=== PATIENT | female | born 1995 | race Caucasian/White ===

== ENCOUNTER 2018-06-24 21:27 | Emergency (ER) | payer BC ==
[~2018-06-24] VITALS: Ht 162.6 cm; Wt 90.6 kg
[~2018-06-24 21:27] MED LIST: AMBIEN10 MG PO; Motrin PO; Natalcare Rx,Pramile PO; Percocet 5/325,Endoc PO; Slow Fe PO
[2018-06-24 21:50] LABS: HEMATOCRIT 42.5 % (36.0-46.0); HEMOGLOBIN 15.2 G/DL (11.9-15.5); MCH 32.8 PG (29.0-34.0); MCHC 35.8 G/DL (30.0-36.0); MCV 91.8 FL (83-99); PLATELET COUNT 256 K/uL (156-360); RBC DIS.WIDTH-CV 11.9 % (11.8-14.6); RBC DIS.WIDTH-SD 39.8 % (39-53); RED BLOOD COUNT 4.63 M/uL (3.80-5.20); WHITE BLOOD COUNT 9.7 K/uL (4.1-10.2)
[2018-06-24 22:01] LABS: CHLORIDE 105 mEq/L (99-109); SODIUM 140 mEq/L (136-147)
[2018-06-24 22:03] LABS: GLUCOSE 87 mg/dL (70-99)
[2018-06-24 22:07] LABS: CREATININE 0.9 mg/dL (0.6-1.3); GFR ESTIMATE (CALCULATED) > 59 mL/min/
[2018-06-24 22:08] LABS: UREA NITROGEN (BUN) 10 mg/dL (9-23)
[2018-06-24 22:11] LABS: TROP-I INTERPRETATION NEGATIVE; TROPONIN-I < 0.01 ng/mL (0.0-0.30)
[2018-06-25 00:01] LABS: D-DIMER ELISA < 150.00 ng/mLDDU (<230)
[2018-06-25 01:34] VITALS: BP 120/72
== END 2018-06-25 01:35 | disposition home or self-care (01) ==
LOC: EME 21:27
DX: R07.9 Chest pain, unspecified (principal); F17.200 Nicotine dependence, unspecified, uncomplicated
CPT/HCPCS: 71046; 80048; 84484; 85027; 85379; 93005; 99281; 99283